=== PATIENT | male | born 1950 | race Caucasian/White ===

== ENCOUNTER 2017-12-04 12:15 | Emergency (ER) | payer MEDICARE, OTHER ==
[~2017-12-04 12:15] MED LIST: AMO500 PO; AZIT1PAC21 PO; CHOL200022 PO; CRAN200C5 PO; LEV175 PO; LOR5 PO; LOSA-54 PO; LUTE20TA PO; MIRT-1 PO; MULT1CAP41 PO; PSYL0.5240 PO; WAR5 PO; ZOLP-350 PO
--- NOTE | 2017-12-04 12:19 | ER Report ---
History and Physical Time Seen By MD: 12:19 HPI/ROS This is a 66-year-old male with a history of PE for which he takes requests and a history of prostate cancer that seems to be in remission after surgery. He presented to the emergency department with fever and nausea and chest a feeling of generalized weakness. The symptoms started yesterday evening. He has been taking much less by mouth. He denies any pain. No chest pain, no shortness of breath, no abdominal pain, no urinary symptoms, no diarrhea. He reports nausea only. No known food exposures or recent travel. No hematemesis. Remainder of the 14 system rev: Yes Allergies: Coded Allergies: No Known Drug Allergies (Verified , 03/13/11) Uncoded Allergies: ENVIRONMENTAL ALLERGIES (Allergy, Mild, 03/13/11) Home Meds Reported Medications Apixaban (ELIQUIS) 2.5 Mg Tablet, 2.5 MG PO 12/04/17 Losartan/Hydrochlorothiazide (LOSARTAN-HCTZ 100-25 MG TAB) 1 Each Tablet, 1 EACH PO QDAY 11/09/14 Mirtazapine (REMERON) 15 Mg Tablet, 7.5 MG PO PRN Y for SLEEP 11/09/14 Cranberry Extract (CRANBERRY) 200 Mg Capsule, 200 MG PO QDAY, CAPSULE 11/09/14 Cholecalciferol (Vitamin D3) (VITAMIN D) 2,000 Unit Tablet, 2000 UNIT PO QDAY 11/09/14 Lutein (LUTEIN) 20 Mg Tablet, 20 MG PO QDAY 11/09/14 Multivitamins W-Minerals (Multivitamin) 1 Cap Capsule, 1 CAP PO 1 PER DAY 03/13/11 Levothyroxine Sodium (Synthroid) 0.175 Mg Tab, 175 MCG PO QDAY 03/13/11 Discontinued Reported Medications Zolpidem Tartrate (Ambien) 10 Mg Tablet, 10 MG PO PRN, 0 Refills 03/13/11 Warfarin Sod (Coumadin (Or Equiv)) 5 Mg Tab, 5 MG PO QDAY ADJUSTS DOSE ACCORDING TO INR KEEPS BETWEEN 5 AND 7.5 03/13/11 Psyllium Husk (Metamucil) 0.52 G Capsule, 0.52 G PO TAKES 2 CAPS PER DAY 03/13/11 Hx Smoking: No Smoking Status: Never Smoker Exposure to Second Hand Smoke?: No Hx Substance Use Disorder: No Hx Alcohol Use: Yes Constitutional Vital Sign - Last 24 Hours 12/04/17 12/04/17 12/04/17 12/04/17 12:15 12:20 12:22 12:30 Temp 102.3 Pulse ??? 111 105 Resp 16 12 B/P (MAP) 162/81 152/81 (104) 130/70 (90) Pulse Ox 85 92 O2 Delivery Room Air 12/04/17 12/04/17 12/04/17 12/04/17 12:45 13:00 13:15 13:30 Pulse 103 105 101 ??? Resp 16 23 22 B/P (MAP) 120/69 (86) ???/??? (1665) Pulse Ox 90 94 95 12/04/17 12/04/17 12/04/17 12/04/17 13:45 13:50 14:00 14:05 Pulse 91 90 92 Resp 21 25 24 B/P (MAP) 119/67 (84) 115/63 (80) Pulse Ox 96 96 96 12/04/17 12/04/17 12/04/17 12/04/17 14:08 14:20 14:30 14:35 Temp 101.9 Pulse 93 95 Resp 23 23 B/P (MAP) 116/66 (83) Pulse Ox 97 97 12/04/17 12/04/17 12/04/17 12/04/17 14:50 15:00 15:05 15:19 Temp 99.6 Pulse 95 91 Resp 11 14 B/P (MAP) 105/63 (77) Pulse Ox 96 94 12/04/17 12/04/17 12/04/17 15:20 15:30 15:35 Pulse 90 84 Resp 21 13 B/P (MAP) 101/66 (78) Pulse Ox 96 96 Intake and Output 12/04/17 12/04/17 12/05/17 15:00 23:00 07:00 Intake Total 1000 ml 1000 ml Output Total 10 ml Balance 990 ml 1000 ml Physical Exam General Appearance: The patient is alert, has no immediate need for airway protection and no current signs of toxicity. Eyes: Pupils equal and round no injection. Respiratory: Chest is non tender, lungs are clear to auscultation. Cardiac: regular rate and rhythm Gastrointestinal: Abdomen is soft and non tender, no masses, bowel sounds normal. Neck: Neck is supple and non tender. Extremities: have full range of motion and are non tender. Skin: No rashes or lesions. DIFFERENTIAL DIAGNOSIS: After history and physical exam differential diagnosis was considered for adult fever including but not limited to viral syndromes including influenza, urinary tract infection, pneumonia and sepsis. Medical Decision Making Data Points Result Diagram: 12/04/17 1225 12/04/17 1225 Laboratory Hematology Test 12/04/17 12:25 12/04/17 15:02 12/04/17 15:30 Red Blood Count 5.51 M/uL (4.00-5.60) Mean Corpuscular Volume 87.6 fL (80.0-96.0) Mean Corpuscular Hemoglobin 31.0 pg (26.0-33.0) Mean Corpuscular Hemoglobin Concent 35.4 g/dL (32.0-36.0) Red Cell Distribution Width 13.0 % (11.5-14.5) Mean Platelet Volume 10.1 fL (7.2-11.1) Neutrophils (%) (Auto) 88.5 % (39.4-72.5) Lymphocytes (%) (Auto) 5.0 % (17.6-49.6) Monocytes (%) (Auto) 6.3 % (4.1-12.4) Eosinophils (%) (Auto) 0.0 % (0.4-6.7) Basophils (%) (Auto) 0.2 % (0.3-1.4) Nucleated RBC Relative Count (auto) 0.4 /100WBC Neutrophils # (Auto) 16.1 K/uL (2.0-7.4) Lymphocytes # (Auto) 0.9 K/uL (1.3-3.6) Monocytes # (Auto) 1.1 K/uL (0.3-1.0) Eosinophils # (Auto) 0.0 K/uL (0.0-0.5) Basophils # (Auto) 0.0 K/uL (0.0-0.1) Nucleated RBC Absolute Count (auto) 0.07 K/uL Prothrombin Time 15.4 seconds (12.0-14.4) Prothromb Time International Ratio 1.21 Activated Partial Thromboplast Time 26 seconds (23-35) Sodium Level 133 mmol/L (137-145) Potassium Level 3.6 mmol/L (3.5-5.0) Chloride Level 98 mmol/L (98-107) Carbon Dioxide Level 24 mmol/L (22-30) Blood Urea Nitrogen 14 mg/dl (9-21) Creatinine 1.10 mg/dl (0.66-1.25) Glomerular Filtration Rate Calc > 60.0 Random Glucose 178 mg/dl (75-110) Calcium Level 9.0 mg/dl (8.4-10.2) Total Bilirubin 1.4 mg/dl (0.2-1.3) Aspartate Amino Transf (AST/SGOT) 28 U/L (0-35) Alanine Aminotransferase (ALT/SGPT) 24 U/L (0-56) Alkaline Phosphatase 72 U/L (0-126) Total Protein 7.3 gm/dl (6.3-8.2) Albumin 3.9 g/dl (3.5-5.0) Urine Color Yellow Urine Clarity Slightly-cloudy Urine pH 5.0 pH (4.8-9.5) Urine Specific [place] 1.023 Urine Protein Negative mg/dL (NEGATIVE) Urine Glucose (UA) Negative mg/dL (NEGATIVE) Urine Ketones Trace mg/dL (NEGATIVE) Urine Blood Small (NEGATIVE) Urine Nitrite Negative (NEGATIVE) Urine Bilirubin Negative (NEGATIVE) Urine Urobilinogen Negative mg/dL (0.2-1.9) Urine Leukocyte Esterase Negative (NEGATIVE) Urine RBC 12 /HPF (0-2/HPF) Urine WBC 4 /HPF (0-5/HPF) Urine Squamous Epithelial Cells Few /LPF (NONE-FEW) Urine Bacteria Few /HPF (NONE-FEW) Urine Mucus Few /HPF (NONE-FEW) Lactate 1.1 mmol/L (0.7-2.1) Chemistry Test 12/04/17 12:25 12/04/17 15:02 12/04/17 15:30 White Blood Count 18.2 k/uL (4.5-11.0) Red Blood Count 5.51 M/uL (4.00-5.60) Hemoglobin 17.1 g/dL (14.0-18.0) Hematocrit 48.3 % (42.0-52.0) Mean Corpuscular Volume 87.6 fL (80.0-96.0) Mean Corpuscular Hemoglobin 31.0 pg (26.0-33.0) Mean Corpuscular Hemoglobin Concent 35.4 g/dL (32.0-36.0) Red Cell Distribution Width 13.0 % (11.5-14.5) Platelet Count 142 K/uL (150-450) Mean Platelet Volume 10.1 fL (7.2-11.1) Neutrophils (%) (Auto) 88.5 % (39.4-72.5) Lymphocytes (%) (Auto) 5.0 % (17.6-49.6) Monocytes (%) (Auto) 6.3 % (4.1-12.4) Eosinophils (%) (Auto) 0.0 % (0.4-6.7) Basophils (%) (Auto) 0.2 % (0.3-1.4) Nucleated RBC Relative Count (auto) 0.4 /100WBC Neutrophils # (Auto) 16.1 K/uL (2.0-7.4) Lymphocytes # (Auto) 0.9 K/uL (1.3-3.6) Monocytes # (Auto) 1.1 K/uL (0.3-1.0) Eosinophils # (Auto) 0.0 K/uL (0.0-0.5) Basophils # (Auto) 0.0 K/uL (0.0-0.1) Nucleated RBC Absolute Count (auto) 0.07 K/uL Prothrombin Time 15.4 seconds (12.0-14.4) Prothromb Time International Ratio 1.21 Activated Partial Thromboplast Time 26 seconds (23-35) Glomerular Filtration Rate Calc > 60.0 Calcium Level 9.0 mg/dl (8.4-10.2) Total Bilirubin 1.4 mg/dl (0.2-1.3) Aspartate Amino Transf (AST/SGOT) 28 U/L (0-35) Alanine Aminotransferase (ALT/SGPT) 24 U/L (0-56) Alkaline Phosphatase 72 U/L (0-126) Total Protein 7.3 gm/dl (6.3-8.2) Albumin 3.9 g/dl (3.5-5.0) Urine Color Yellow Urine Clarity Slightly-cloudy Urine pH 5.0 pH (4.8-9.5) Urine Specific [place] 1.023 Urine Protein Negative mg/dL (NEGATIVE) Urine Glucose (UA) Negative mg/dL (NEGATIVE) Urine Ketones Trace mg/dL (NEGATIVE) Urine Blood Small (NEGATIVE) Urine Nitrite Negative (NEGATIVE) Urine Bilirubin Negative (NEGATIVE) Urine Urobilinogen Negative mg/dL (0.2-1.9) Urine Leukocyte Esterase Negative (NEGATIVE) Urine RBC 12 /HPF (0-2/HPF) Urine WBC 4 /HPF (0-5/HPF) Urine Squamous Epithelial Cells Few /LPF (NONE-FEW) Urine Bacteria Few /HPF (NONE-FEW) Urine Mucus Few /HPF (NONE-FEW) Lactate 1.1 mmol/L (0.7-2.1) Coagulation Test 12/04/17 12:25 Prothrombin Time 15.4 seconds Prothromb Time International Ratio 1.21 Activated Partial Thromboplast Time 26 seconds Urinalysis Test 12/04/17 15:02 Urine Color Yellow Urine Clarity Slightly-cloudy Urine pH 5.0 pH (4.8-9.5) Urine Specific [place] 1.023 Urine Protein Negative mg/dL (NEGATIVE) Urine Glucose (UA) Negative mg/dL (NEGATIVE) Urine Ketones Trace mg/dL (NEGATIVE) Urine Blood Small (NEGATIVE) Urine Nitrite Negative (NEGATIVE) Urine Bilirubin Negative (NEGATIVE) Urine Urobilinogen Negative mg/dL (0.2-1.9) Urine Leukocyte Esterase Negative (NEGATIVE) Urine RBC 12 /HPF (0-2/HPF) Urine WBC 4 /HPF (0-5/HPF) Urine Squamous Epithelial Cells Few /LPF (NONE-FEW) Urine Bacteria Few /HPF (NONE-FEW) Urine Mucus Few /HPF (NONE-FEW) EKG/Imaging Imaging X-ray: CXR was obtained. I viewed the images myself on the PACS system. My interpretation of the images is: no evidecne of infection/pulmonary edema or PTX The radiologist interpretation had no clinically significant variation from this interpretation. ED Course/Re-evaluation Clinical Indication for ER IV: Hydration ED Course 12/04/2017 4:16:20 pm 66-year-old male presents to the emergency department with approximately one day of fever, chills, and nausea. Also taking less by mouth and therefore feeling generalized weakness. No chest pain or shortness of breath, and no abdominal pain on history or physical exam. His lactate was mildly elevated on initial labs which presumably was from dehydration from his lack of by mouth for the past 12 hours. He received 2 L of normal saline and 1 dose of Zofran. He also received a gram of Tylenol with improvement of his fever. On reexamination he is feeling much improved, his coloration of his skin is much improved, his nausea has subsided, and he is able to take by mouth in the emergency department. I think given his clinical presentation he does not need a repeat lactate. A UA and chest x-ray neither showed evidence of infection. He did not have pain or tenderness to palpation in the abdomen, and I do not think he needs any imaging of the abdomen. I think that he likely has a viral gastritis. I will discharge him with a prescription for Zofran, and I encouraged him to make sure he at least drinks plenty of fluids at home to avoid becoming dehydrated again. Decision to Disposition Date: December 04, 2017 Decision to Disposition Time: 16:17 Depart Departure Latest Vital Signs Vital Signs Date Time Temp Pulse Resp B/P (MAP) Pulse Ox O2 Delivery O2 Flow Rate FiO2 12/04/17 15:35 84 13 96 12/04/17 15:30 101/66 (78) 12/04/17 15:19 99.6 12/04/17 12:20 Room Air Impression: Primary Impression: Viral gastritis Condition: Improved Disposition: HOME OR SELF-CARE Referrals: ANTONIO TODD MD (PCP) New Scripts Ondansetron Hcl (ONDANSETRON HCL) 4 Mg Tablet 4 MG PO Q12H for 5 Days, #14 TAB Prov: DAMEON SIMPSON MD 12/04/17 Patient Instructions: Acute Nausea and Vomiting (ED) DAMEON SIMPSON MD December 04, 2017 12:19
[2017-12-04] MEDS ORDERED: NS 0.9% IV ONE (12:30)
[2017-12-04] MEDS ORDERED: APIX2.5T PO (12:31)
[2017-12-04] MEDS ORDERED: ONDANSETRON 4 MG/2 ML VIAL IVP ONE (12:40)
[2017-12-04 12:52] LABS: PLATELET COUNT, AUTOMATED 142 K/uL (150-450)
[2017-12-04 13:11] LABS: INR 1.21
--- NOTE | 2017-12-04 13:52 | RADIOLOGY IMAGING REPORT ---
FACILITY: [facility] - [place] PATIENT NAME: Jean Krueger : 1950 MR: [id number] V: [id number] EXAM DATE: ORDERING PHYSICIAN: DAMEON SIMPSON TECHNOLOG[place]: [place] [facility] [place] : 1950 Visit/Account:[id number] Date of Sevice: 12/04/2017 CHEST PA AND LAT COMPARISONS: Single view chest dated June 26, 2006 ADDITIONAL PERTINENT HISTORY: Cough with fever FINDINGS: Cardiomediastinal silhouette: Negative. Pulmonary vasculature: Negative. Lung romero: Minimal bibasilar regions of scarring. Otherwise negative Pleural spaces: Negative. Osseous structures: Spondylitic change involving the lower thoracic spine. Surrounding soft tissues: Negative. IMPRESSION: 1. Background interstitial scarring. 2. No acute cardiopulmonary disease. Report Dictated By: Jean Carcamo MD at 12/04/2017 1:47 PM Report E-Signed By: Jean Carcamo MD at 12/04/2017 1:48 PM WSN:[id number]
[2017-12-04] MEDS ORDERED: ACETAMINOPHEN 500 MG TAB PO ONE (14:15)
[2017-12-04 16:00] VITALS: BP 109/73
[2017-12-04] MEDS ORDERED: ONDA-2 PO (16:20)
== END 2017-12-04 16:30 | disposition home or self-care (01) ==
LOC: ER 12:18
DX: K29.70 Gastritis, unspecified, without bleeding (principal)
CPT/HCPCS: 36415; 71046; 81001; 83605; 85025; 85610; 85730; 87040; 87088; 96361; 96374; 99284; A9270; J2405; J7030; 82040; 82247; 82310; 82374; 82435; 82565; 82947; 84075; 84132; 84155; 84295; 84450; 84460; 84520

== ENCOUNTER → 2017-12-08 | Outpatient (REF) | payer MEDICARE, OTHER ==
[~2017-12-08] MED LIST changes: +APIX2.5T PO; +ONDA-2 PO
[2017-12-08 13:22] LABS: PLATELET COUNT, AUTOMATED 166 K/uL (150-450)
== END ==
PROVIDERS: ATTEND Nurse Practitioner Family
DX: R10.9 Unspecified abdominal pain (principal)
CPT/HCPCS: 82040; 82247; 82310; 82374; 82435; 82565; 82947; 84075; 84132; 84155; 84295; 84450; 84460; 84484; 84520; 85025; 85379

== ENCOUNTER → 2017-12-08 | Outpatient (CLI) | payer MEDICARE, OTHER ==
[~2017-12-08] MED LIST changes: +IOPAMIDOL 76% 75 ML INFUS BTL 75 ML ONE; +NS 0.9% 150 ML BAG 150 ML ONE
--- NOTE | 2017-12-08 15:45 | RADIOLOGY IMAGING REPORT ---
[place] [facility] [place] Jean Krueger : 1950 MR: [id number] V: [id number] EXAM DATE: ORDERING PHYSICIAN: ANTONIO PATEL TECHNOLOGIST: Location: [facility] Patient: Jean Krueger : 1950 Visit/Account:[id number] Date of Sevice: 12/08/2017 CT Angiogram Chest with IV contrast for pulmonary embolus detection History: Cough, elevated d-dimer Comparison: None available Technique: Axial CT images through the chest were obtained in the pulmonary arterial phase of the con trast bolus during rapid administration of intravenous nonionic iodinated IV contrast. Reformatted c oronal and sagittal images were reviewed as well as coronal MIP images. Contrast used: 75 mL Isovue 370 One of the following dose optimization techniques was utilized in the performance of this exam: Autom ated exposure control; adjustment of the mA and/or kV according to the patient's size; or use of an i terative reconstruction technique. Specific details can be referenced in the facility's radiology C T exam operational policy. FINDINGS: CTA chest: Pulmonary arteries: No pulmonary thromboembolism is observed from main pulmonary artery to the subse gmental level. Normal size pulmonary arteries. Heart, aorta, and great vessels: Normal Lungs and pleura: Central and bilateral lower lobe airways are thick. There is mild bilateral lower lobe and dependent lingular atelectasis. No pleural fluid collections or pneumothorax. Mediastinum and yumi: Mediastinum and yumi are normal. Chest wall: Negative Bones: There are large right anterior opposing endplate osteophytes in the lower thoracic spine. Upper Abdomen: Negative IMPRESSION: 1. Negative CTA for pulmonary embolus. 2. Central and bilateral lower lobe airway thickening suggests bronchitis. 3. The finding in the right lateral lower chest on the chest x-ray may represent epipleural fat in th e mid and lower chest. There is no pleural lesion or rib abnormality. Results were discussed with ANTONIO PATEL at 12/08/2017 3:41 PM. Report Dictated By: Susana Patterson MD at 12/08/2017 3:23 PM Report E-Signed By: Susana Patterson MD at 12/08/2017 3:41 PM WSN:[id number]
== END ==
LOC: CT 14:39
PROVIDERS: ATTEND Nurse Practitioner Family
DX: R05 Cough (principal); R03.0 Elevated blood-pressure reading, without diagnosis of hypertension; J18.9 Pneumonia, unspecified organism
CPT/HCPCS: 71275; Q9967

== ENCOUNTER → 2017-12-10 | Outpatient (REF) | payer MEDICARE, OTHER ==
[~2017-12-10] MED LIST changes: -IOPAMIDOL 76% 75 ML INFUS BTL 75 ML ONE; -NS 0.9% 150 ML BAG 150 ML ONE
[2017-12-10 12:15] LABS: PLATELET COUNT, AUTOMATED 275 K/uL (150-450)
== END ==
PROVIDERS: ATTEND Nurse Practitioner Family
DX: R10.9 Unspecified abdominal pain (principal)
CPT/HCPCS: 82040; 82247; 82310; 82374; 82435; 82565; 82947; 83615; 84075; 84132; 84155; 84295; 84450; 84460; 84520; 85025; 85651

== ENCOUNTER → 2017-12-10 | Outpatient (CLI) | payer MEDICARE, OTHER ==
[~2017-12-10] MED LIST changes: +IOPAMIDOL 76% 75 ML INFUS BTL 75 ML ONE
--- NOTE | 2017-12-10 14:12 | RADIOLOGY IMAGING REPORT ---
FACILITY: [facility] PATIENT NAME: Jean Krueger : 1950 MR: [id number] V: [id number] EXAM DATE: ORDERING PHYSICIAN: ANTONIO PATEL TECHNOLOGIST: Location: [facility] [place] Patient: Jean Krueger : 1950 Visit/Account:[id number] Date of Sevice: 12/10/2017 VENOUS DOPP LOW LEFT EXTREMITY HISTORY: ADDITIONAL HISTORY: None. COMPARISON: None. FINDINGS: The left common femoral, femoral, and popliteal veins are fully compressible and patent. The paired veins of the calf are normal. Contralateral right common femoral vein is normal. IMPRESSION: Normal left lower extremity Doppler ultrasound. Report Dictated By: Remberto Diaz at 12/10/2017 2:06 PM Report E-Signed By: Remberto Diaz at 12/10/2017 2:08 PM WSN:[id number]
--- NOTE | 2017-12-10 15:12 | RADIOLOGY IMAGING REPORT ---
[place] [facility] [place] NAME: Jaen Krueger : 1950 MR: [id number] V: [id number] EXAM DATE: ORDERING PHYSICIAN: ANTONIO PATEL TECHNOLOGIST: Location: [facility] [place] Patient: Jean Krueger : 1950 Visit/Account:[id number] Date of Sevice: 12/10/2017 CT abdomen and pelvis without and with IV contrast Indication: Abdominal pain. Comparison: 09/21/2006. 12/23/2009.. Technique: Axial CT images were obtained through the abdomen and pelvis prior to and during injecti on of nonionic iodinated intravenous contrast. Reformatted coronal and sagittal images were also obta ined. One of the following dose optimization techniques was utilized in the performance of this exam: Autom ated exposure control; adjustment of the mA and/or kV according to the patient's size; or use of an i terative reconstruction technique. Specific details can be referenced in the facility's radiology C T exam operational policy. Contrast: 75 ml of Isovue-370 IV contrast. Findings: Lower lung romero: Mild scarring, otherwise clear. Liver: The inferior anterior aspect of the liver does show subcentimeter hypodensity which too small characterize and statistically tiny cyst. The liver shows a second tiny cyst in the posterior right l obe. These appear stable No other focal abnormality. Biliary: Couple tiny gallstones without other gallbladder or biliary abnormality. Pancreas: Normal appearance. Spleen: Normal appearance. Adrenal glands: Unremarkable. Kidneys / retroperitoneum: No evidence of nephrolithiasis or hydronephrosis. No focal normality. Bowel / peritoneum / mesenteries: There are several diverticula along the sigmoid and descending colo n. The colon shows no other focal normality. The appendix is normal. The small bowel shows no focal a bnormality or obstruction. The stomach is decompressed and grossly normal. The left lower abdomen, along the iliopsoas region is a fluid collection with air present measuring a t least 12 x 8 cm. There is some extraluminal and extra fluid collection air seen superior to this re gion left-sided abdomen with inflammatory changes present. This fluid collection extends along the il iac vessels and the iliac vein is not well visualized in this region. No other areas of free air or f luid collections. No free fluid or other areas of inflammation. Small umbilical hernia containing fat . Small bilateral internal hernias containing fat. Lymph node assessment: There are some prominent lymph node seen in the left renal area, largest measu ring 1.9 cm. Pelvic structures: Appear unremarkable. Vessels: Mild atherosclerotic calcifications seen throughout a nonaneurysmal abdominal aorta and bran ches. Musculoskeletal / Body wall: No acute or aggressive osseous abnormality. Mild degenerative changes of the spine. IMPRESSION: 1. There is a large abscess seen in the left lower abdomen and pelvis along the iliopsoas region and along the iliac vasculature. This measures at least 12 cm. There is extra luminal air present superio rly to this region with inflammatory changes. The discrete cause is not identified. There are diverti cula along the sigmoid and descending colon however this appears to be remote from the abscess. Howev er cannot exclude a sequelae of diverticulitis. The left iliac vein is not well visualized in this ar ea. Prominent left inguinal lymph nodes, nonspecific. 2. Cholelithiasis. 3. Other chronic findings as above. I called report to ANTONIO PATEL at 12/10/2017 3:07 PM. Report Dictated By: Manuel Stafford at 12/10/2017 2:49 PM Report E-Signed By: Manuel Stafford at 12/10/2017 3:09 PM WSN:[id number]
== END ==
LOC: CT 13:14
PROVIDERS: ATTEND Nurse Practitioner Family
DX: R19.04 Left lower quadrant abdominal swelling, mass and lump (principal); R59.0 Localized enlarged lymph nodes; K57.30 Diverticulosis of large intestine without perforation or abscess without bleeding; K80.20 Calculus of gallbladder without cholecystitis without obstruction; I25.10 Atherosclerotic heart disease of native coronary artery without angina pectoris
CPT/HCPCS: 74178; 93971; Q9967

== ENCOUNTER 2017-12-25 12:00 | Outpatient (RCR) | payer MEDICARE, OTHER ==
[2017-12-16 12:56] VITALS: BP 117/84
[2017-12-17] MEDS: cefTRIAXone(*) 2 GM VIAL 2 GM in NS(*) 0.9% 100 ML ADDVANT BAG 100 ML IVPB PRN (13:18)
[2017-12-17 13:30] VITALS: BP 95/56
[2017-12-18] MEDS: cefTRIAXone(*) 2 GM VIAL 2 GM in NS(*) 0.9% 100 ML ADDVANT BAG 100 ML IVPB PRN (13:14)
[2017-12-18 13:27] VITALS: BP 100/55
[2017-12-19] MEDS: cefTRIAXone(*) 2 GM VIAL 2 GM in NS(*) 0.9% 100 ML ADDVANT BAG 100 ML IVPB PRN (13:01)
[2017-12-19] MEDS: NS(*) 0.9% 100 ML BAG 100 ML IVPB PRN (13:01)
[2017-12-19 13:04] VITALS: BP 112/63
[2017-12-20] MEDS: NS(*) 0.9% 100 ML BAG 100 ML IVPB PRN (12:59)
[2017-12-20] MEDS: cefTRIAXone(*) 2 GM VIAL 2 GM in NS(*) 0.9% 100 ML ADDVANT BAG 100 ML IVPB PRN (12:59)
[2017-12-20 13:00] VITALS: BP 123/76
[2017-12-21] MEDS: cefTRIAXone(*) 2 GM VIAL 2 GM in NS(*) 0.9% 100 ML ADDVANT BAG 100 ML IVPB PRN (13:13)
[2017-12-21 13:19] LABS: PLATELET COUNT, AUTOMATED 316 K/uL (150-450)
[2017-12-21] MEDS: NS(*) 0.9% 100 ML BAG 100 ML IVPB PRN (13:57)
[2017-12-21 14:50] VITALS: BP 123/76
[2017-12-22 13:01] VITALS: BP 124/77
[2017-12-22] MEDS: cefTRIAXone(*) 2 GM VIAL 2 GM in NS(*) 0.9% 100 ML ADDVANT BAG 100 ML IVPB PRN (13:01)
[2017-12-23 10:07] VITALS: BP 121/77
[2017-12-23] MEDS: cefTRIAXone(*) 2 GM VIAL 2 GM in NS(*) 0.9% 100 ML ADDVANT BAG 100 ML IVPB PRN (10:08)
[2017-12-24] MEDS: cefTRIAXone(*) 2 GM VIAL 2 GM in NS(*) 0.9% 100 ML ADDVANT BAG 100 ML IVPB PRN (12:06)
[2017-12-24 12:25] VITALS: BP 121/62
[~2017-12-25 12:00] MED LIST changes: +ALTEPLASE RECOMB 2 MG VIAL IVP PRN; +DEXTROSE 5%(*) 100 ML BAG 100 ML IVPB PRN; -IOPAMIDOL 76% 75 ML INFUS BTL 75 ML ONE; +NS(*) 0.9% 500 ML BAG 500 ML IV PRN; +WATER FOR INJ,STERILE 20 ML IVP PRN; +cefTRIAXone 2 GM VIAL IVP ONE
[2017-12-25] MEDS: cefTRIAXone(*) 2 GM VIAL 2 GM in NS(*) 0.9% 100 ML ADDVANT BAG 100 ML IVPB PRN (12:59)
[2017-12-25 14:34] VITALS: BP 125/62
== END 2018-01-01 10:15 | disposition home or self-care (01) ==
LOC: SPU 12:00
PROVIDERS: ATTEND Internal Medicine
DX: K65.1 Peritoneal abscess (principal); T81.4XXD Infection following a procedure, subsequent encounter; A49.9 Bacterial infection, unspecified; I89.8 Other specified noninfective disorders of lymphatic vessels and lymph nodes; Z90.79 Acquired absence of other genital organ(s)
CPT/HCPCS: 85025; 86140; 96365; 96366; 96374; J0696; J1642; J7050; 82040; 82247; 82310; 82374; 82435; 82565; 82947; 84075; 84132; 84155; 84295; 84450; 84460; 84520